=== PATIENT | female | born 1930 | race Two or more races ===

== ENCOUNTER 2017-01-11 16:23 | Inpatient (IN) | payer MEDICARE ==
[~2017-01-11] VITALS: Ht 160 cm; Wt 49.9 kg
[2017-01-11] MEDS ORDERED: ACET-2605 PO (21:47)
[2017-01-11] MEDS ORDERED: SENN-167 PO (21:47)
[2017-01-11] MEDS ORDERED: CALC500T51 PO (21:47)
[2017-01-11] MEDS ORDERED: PRED10TA23 PO (21:47)
[2017-01-11] MEDS ORDERED: ASPI81TA31 PO (21:47)
[2017-01-11 23:00] VITALS: BP 126/67
[2017-01-12] MEDS ORDERED: Z GUARD REMEDY PASTE 57 GM TUBE TOP PRN
--- NOTE | 2017-01-12 06:05 | NUR ---
+2014 RECEIVED AN 86 YEARS OLD FROM [facility] AND [facility] WITH ADMITTING DIAGNOSIS OF DEBILITY. AAOX2-3 CONFUSED AT TIMES. HISTORY OF DEMENTIA. SKIN INTACT. LUNGS CLEAR. VSS PULSE TEMP 97.7 HR 75 RESP 19 BP 117/66 PULSE OX 93% RA SEEN BY DR MCDUFFIE AMBULATES TO THE BATHROOM 2X WITH ASSIST. VOIDING WELL. NO BM NOTED. DENIES ANY PAIN NOR ANY DISCOMFORT.RIGHT HEEL WITH PEELING DRY SKIN AND BILATERAL LOWER EXTREMITIES HAS SOME REDNESS NOTED. HAS A BILATERAL SCD'S ON.SLEPT WELL.
[2017-01-12] MEDS: PANTOPRAZOLE SODIUM 40 MG TABLET.DR PO SCH (06:22)
--- NOTE | 2017-01-12 06:22 | NUR ---
protonix 40 mg po given x1 this morning. this is a duplicate med ordered
[2017-01-12] MEDS ORDERED: PANTOPRAZOLE SODIUM 40 MG TABLET.DR PO ONE (06:32)
[2017-01-12 08:00] VITALS: BP 131/76
[2017-01-12] MEDS: SENNOSIDES 1 TABLET PO SCH (09:15)
[2017-01-12] MEDS ORDERED: ACETAMINOPHEN ES 500 MG TABLET PO PRN (09:15)
[2017-01-12] MEDS: ASPIRIN 81 MG TAB.CHEW PO SCH (09:27)
[2017-01-12] MEDS: CALCIUM CARBONATE 500 MG TABLET PO SCH (09:29)
--- NOTE | 2017-01-12 19:20 | NUR ---
PT IS LAYING IN BED COMFORTABLY. NO S/S OF RESPIRATORY DISTRESS NOTED. NO PAIN NOTED. ALL SAFETY NEEDS ARE MET.
[2017-01-12 20:00] VITALS: BP 108/64
[2017-01-13] MEDS: PANTOPRAZOLE SODIUM 40 MG TABLET.DR PO SCH (06:36)
[2017-01-13 08:02] VITALS: BP 134/70
[2017-01-13] MEDS: ASPIRIN 81 MG TAB.CHEW PO SCH (08:45)
[2017-01-13] MEDS: SENNOSIDES 1 TABLET PO SCH (08:45)
[2017-01-13] MEDS: CALCIUM CARBONATE 500 MG TABLET PO SCH (08:46)
--- NOTE | 2017-01-13 18:13 | NUR ---
patient had an uneventful shift. confused at times and redirected to call out when she needs to get out of the bed. patient bed alarm engaged throughout shift. morning medications taken no prns given.
[2017-01-13 20:56] VITALS: BP 112/58
[2017-01-14] MEDS: PANTOPRAZOLE SODIUM 40 MG TABLET.DR PO SCH (06:48)
[2017-01-14 08:32] VITALS: BP 139/78
[2017-01-14] MEDS: ASPIRIN 81 MG TAB.CHEW PO SCH (09:57)
[2017-01-14] MEDS: CALCIUM CARBONATE 500 MG TABLET PO SCH (09:57)
[2017-01-14] MEDS: SENNOSIDES 1 TABLET PO SCH (09:57)
--- NOTE | 2017-01-14 13:20 | NUR ---
PT. IS OOB ALL SHIFT WORKING WITH P.T./O.T. WITH [facility] TOLERANCE. SITTING IN [facility] AND MOVING AROUND IN ROOM. FREQ. CHECKS FOR SAFTEY DUE TO FORGETFULNESS.PT. SPOKE WITH DR. 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 KNEES FOR INCISIONS. NONE NOTED. PER MD - PT. REFUSES CHEMICAL AND PHYSICAL DVT PROPHYLAXIS.
--- NOTE | 2017-01-14 18:49 | NUR ---
PT APPEARS TO HAVE INCREASED CONFUSION AFTER 4 PM AND WORRIED ABOUT SAFTEY REUESTING TO "LOCK THE DOOR". . PT. REASSURED AND REORIENTED. PT. ASSISTED TO BED AND NOW WATCHING TV. CALL LIGHT W/IN REACH. BED IN LOWEST POSITION. BED ALARM ON.
[2017-01-14 21:41] VITALS: BP 117/65
[2017-01-15] MEDS: PANTOPRAZOLE SODIUM 40 MG TABLET.DR PO SCH (06:30)
[2017-01-15 07:48] LABS: BASOPHILS % (AUTO) 0.4 % (0.0-2.0); EOSINOPHILS # (AUTO) 0.3 K/uL (0.0-0.7); HEMATOCRIT 36.8 % (37-47); HEMOGLOBIN 12.3 G/DL (12.0-16.0); LYMPHOCYTES # (AUTO) 1.2 K/UL (0.8-4.8); LYMPHOCYTES % (AUTO) 19.6 % (20.5-51.5); MEAN CORPUSCULAR HGB CONC 34 g/dL (32.0-37.0); MEAN CORPUSCULAR VOLUME 92.5 FL (81.0-99.0); MONOCYTES # (AUTO) 0.5 K/UL (0.1-1.30); PLATELET COUNT (AUTO) 270 K/UL (150-450); RED BLOOD CELL COUNT(AUTO) 3.98 MIL/UL (4.2-5.4)
[2017-01-15 08:00] VITALS: BP 128/69
[2017-01-15] MEDS: SENNOSIDES 1 TABLET PO SCH (08:15)
[2017-01-15] MEDS: ASPIRIN 81 MG TAB.CHEW PO SCH (08:15)
[2017-01-15] MEDS: CALCIUM CARBONATE 500 MG TABLET PO SCH (08:15)
[2017-01-15 08:18] LABS: CARBON DIOXIDE 29 mmol/L (21-32); CHLORIDE 108 mmol/L (98-107); CREATININE 0.7 mg/dL (0.6-1.3); GLUCOSE 84 mg/dL (74-106); MAGNESIUM 2.1 mg/dL (1.8-2.4); PHOSPHOROUS 3.4 mg/dL (2.5-4.9); UREA NITROGEN, BLOOD 18 mg/dL (7-18)
--- NOTE | 2017-01-15 18:05 | NUR ---
Patient had an uneventful day. Took medications with no problems. Patient has moments of forgetfulness.
[2017-01-15 20:00] VITALS: BP 105/56
[2017-01-16] MEDS: PANTOPRAZOLE SODIUM 40 MG TABLET.DR PO SCH (06:02)
[2017-01-16] MEDS: ASPIRIN 81 MG TAB.CHEW PO SCH (08:23)
[2017-01-16] MEDS: CALCIUM CARBONATE 500 MG TABLET PO SCH (08:23)
[2017-01-16] MEDS: SENNOSIDES 1 TABLET PO SCH (08:23)
[2017-01-16 11:06] VITALS: BP 127/75
--- NOTE | 2017-01-16 15:29 | NUR ---
[employer] SW met with patient at [facility] to assess pt needs and provide support. The patient is an 86 year old female who was admitted for general debility, functional decline and ambulation impairment. The patient stated that she is afraid of falling. She was calm and cooperative during the interview. The patient's mood was somewhat elevated. The patient stated that her sleep and appetite have been good . The patient stated that she lives in an assisted living facility but could not recall the name. The patient acknowledged her condition and the need for intervention. Social history: The patient stated that she was born in [facility] and moved to [place] in 1958. The patient stated that she was raised by her parents. The patient stated that she completed high school. She stated that she worked for [employer] and was laid off last year. The patient stated that she is a . The patient stated that she has 2 daughters and 1 son but that she does not know where her children live and does not talk to them very often. The patient denied any history of abuse or domestic violence. The patient denied any history of drug or alcohol abuse. The patient stated that she will return to her assisted living upon discharge. SW engaged in active listening and provided supportive counseling during the interview to address patient's depressive symptoms related to her decline in functioning. SW will continue to address issues of loss related to recent hospitalization. SW will encourage compliance with rehab goals. SW will be available as needed.
--- NOTE | 2017-01-16 19:30 | NUR ---
RECEIVED PATIENT AWAKE, ALERT, AND ORIENTED ONLY TO NAME AND SOMETIMES SITUATION. REORIENTED TO TIME, PLACE, AND DATE. NO C/O DISCOMFORT AT THIS TIME. APPEARS COMFORTABLE. CALL LIGHT WITHIN REACH AND BED ALARM ON AAT.
[2017-01-16 20:03] VITALS: BP 108/63
--- NOTE | 2017-01-16 21:35 | NUR ---
REPORT GIVEN TO LEX LUNSFORD. CARE HANDED OFF OF THIS PATIENT AT THIS TIME
[2017-01-17] MEDS: PANTOPRAZOLE SODIUM 40 MG TABLET.DR PO SCH (07:24)
[2017-01-17 08:00] VITALS: BP 138/72
[2017-01-17] MEDS: SENNOSIDES 1 TABLET PO SCH (08:45)
[2017-01-17] MEDS: CALCIUM CARBONATE 500 MG TABLET PO SCH (08:45)
[2017-01-17] MEDS: ASPIRIN 81 MG TAB.CHEW PO SCH (08:45)
--- NOTE | 2017-01-17 14:41 | NUR ---
REHAB TEAM CONFERENCE 01/17/17
--- NOTE | 2017-01-17 18:46 | NUR ---
Patient had a good day today. Worked with PT/OT. Patient stated she enjoyed the wheelchair because she can move around better.
[2017-01-17 20:06] VITALS: BP 98/60
[2017-01-18] MEDS: PANTOPRAZOLE SODIUM 40 MG TABLET.DR PO SCH (06:50)
[2017-01-18] MEDS: SENNOSIDES 1 TABLET PO SCH (08:09)
[2017-01-18] MEDS: CALCIUM CARBONATE 500 MG TABLET PO SCH (08:09)
[2017-01-18] MEDS: ASPIRIN 81 MG TAB.CHEW PO SCH (08:09)
[2017-01-18 08:20] VITALS: BP 118/68
--- NOTE | 2017-01-18 18:45 | NUR ---
pt seem to be confused and forgetful during the day. pt instructed to not leave the unit. pt forgot instructions and wheeled her self out of the unit. pt had no signs of acute distress. bed alarm on to prevent falls. pt taught to use the call light but forgot. pt ate all meals. pt assisted when needed. no new orders. will endorse developments to box toe stitcher nurse.
[2017-01-18 20:25] VITALS: BP 88/40
[2017-01-19] MEDS: PANTOPRAZOLE SODIUM 40 MG TABLET.DR PO SCH (06:07)
--- NOTE | 2017-01-19 06:32 | NUR ---
Pt had an uneventful night. AAO x3, forgetful. Able to make needs known. Afebrile. V/S stable. Pt denies any pain/discomfort. Will endorse to am shift nurse.
[2017-01-19 08:00] VITALS: BP 109/66
[2017-01-19] MEDS: SENNOSIDES 1 TABLET PO SCH (08:10)
[2017-01-19] MEDS: ASPIRIN 81 MG TAB.CHEW PO SCH (08:10)
[2017-01-19] MEDS: CALCIUM CARBONATE 500 MG TABLET PO SCH (08:10)
--- NOTE | 2017-01-19 09:42 | NUR ---
pt continues to be confused. pt instructed not to get up on her own. bed alarm on. pt monitored for fall precautions.
--- NOTE | 2017-01-19 17:53 | NUR ---
pt continues to be confused during shift. pt started to use the call light for help to prevent falls. pt took meds as prescribed. no new injuries noted. no loc changes. vitals stable. pt able to void and bm during the day. pt seen by and states that pt is confused. no new orders.
[2017-01-19 20:23] VITALS: BP 108/60
[2017-01-20] MEDS: PANTOPRAZOLE SODIUM 40 MG TABLET.DR PO SCH (07:05)
[2017-01-20 08:04] VITALS: BP 135/72
[2017-01-20] MEDS: CALCIUM CARBONATE 500 MG TABLET PO SCH (09:00)
[2017-01-20] MEDS: ASPIRIN 81 MG TAB.CHEW PO SCH (10:03)
[2017-01-20] MEDS: SENNOSIDES 1 TABLET PO SCH (10:03)
--- NOTE | 2017-01-20 20:00 | NUR ---
PATIENT IN ROOM WITH NO DISTRESS NOTED. ABLE TO AMBULATE TO RESTROOM WITH ASSIST. PROVIDE COMFORT AND SAFETY MEASURES
[2017-01-20 20:05] VITALS: BP 106/65
--- NOTE | 2017-01-20 22:10 | NUR ---
PATIENT IN ROOM WITH BED ALARM ON A/OX2 WITH NO DISTRESS NOTED. PATIENT CALM AND COOPERATIVE. PROVIDE COMFORT AND SAFETY MEASURES
--- NOTE | 2017-01-20 23:45 | NUR ---
RECEIVED PATIENT SLEEPING COMFORTABLY IN BED. NO ACUTE DISTRESS NOTED. SAFETY INITIATED. CALL LIGHT WITHIN REACH. WILL CONTINUE TO MONITOR. FALL PRECAUTION INITIATED.
[2017-01-21] MEDS: PANTOPRAZOLE SODIUM 40 MG TABLET.DR PO SCH (06:14)
--- NOTE | 2017-01-21 07:02 | NUR ---
NO CHANGES T/O SHIFT. NO ACUTE DISTRESS NOTED. ALL NEEDS MET. COMFORT AND SAFETY MEASURES MAINTAINED T/O SHIFT.
--- NOTE | 2017-01-21 08:00 | NUR ---
Received patient awake, up on bed, alert, verbally responsive, not in any form of acute distress. She denies any pain or discomfort. Assisted to her needs. Call light placed within reach.
[2017-01-21 08:48] VITALS: BP 140/79
[2017-01-21] MEDS: SENNOSIDES 1 TABLET PO SCH (09:19)
[2017-01-21] MEDS: CALCIUM CARBONATE 500 MG TABLET PO SCH (09:19)
[2017-01-21] MEDS: ASPIRIN 81 MG TAB.CHEW PO SCH (09:20)
[2017-01-21 20:00] VITALS: BP 105/59
[2017-01-22] MEDS: PANTOPRAZOLE SODIUM 40 MG TABLET.DR PO SCH (06:20)
[2017-01-22 07:20] VITALS: BP 127/72
[2017-01-22] MEDS: SENNOSIDES 1 TABLET PO SCH (08:21)
[2017-01-22] MEDS: ASPIRIN 81 MG TAB.CHEW PO SCH (08:21)
[2017-01-22] MEDS: CALCIUM CARBONATE 500 MG TABLET PO SCH (08:22)
[2017-01-22 20:00] VITALS: BP 104/55
[2017-01-22 20:07] VITALS: BP 104/55
--- NOTE | 2017-01-23 06:18 | NUR ---
Uneventful night, states slept well.
[2017-01-23] MEDS: PANTOPRAZOLE SODIUM 40 MG TABLET.DR PO SCH (06:52)
[2017-01-23 07:30] VITALS: BP 125/70
[2017-01-23] MEDS: SENNOSIDES 1 TABLET PO SCH (09:58)
[2017-01-23] MEDS: ASPIRIN 81 MG TAB.CHEW PO SCH (09:58)
[2017-01-23] MEDS: CALCIUM CARBONATE 500 MG TABLET PO SCH (09:58)
[2017-01-23 20:02] VITALS: BP 106/63
[2017-01-24] MEDS: PANTOPRAZOLE SODIUM 40 MG TABLET.DR PO SCH (07:16)
[2017-01-24 07:25] VITALS: BP 132/69
--- NOTE | 2017-01-24 08:00 | NUR ---
Handoff rounds last hour with visit to patient's bedside.
[2017-01-24 09:04] LABS: BASOPHILS % (AUTO) 0.8 % (0.0-2.0); EOSINOPHILS # (AUTO) 0.3 K/uL (0.0-0.7); HEMATOCRIT 37.4 % (37-47); HEMOGLOBIN 12.4 G/DL (12.0-16.0); LYMPHOCYTES # (AUTO) 1.1 K/UL (0.8-4.8); MEAN CORPUSCULAR HEMOGLOBIN 30.9 UUG (27.0-31.0); MEAN CORPUSCULAR HGB CONC 33 g/dL (32.0-37.0); MEAN CORPUSCULAR VOLUME 93.1 FL (81.0-99.0); MONOCYTES # (AUTO) 0.4 K/UL (0.1-1.30); MONOCYTES % (AUTO) 8.5 % (0.0-11.0); NEUTROPHILS # (AUTO) 2.9 K/UL (1.8-8.9); NEUTROPHILS % (AUTO) 61.7 % (38.5-71.5); PLATELET COUNT (AUTO) 255 K/UL (150-450); RED BLOOD CELL COUNT(AUTO) 4.02 MIL/UL (4.2-5.4); WHITE BLOOD COUNT (AUTO) 4.7 K/UL (4.0-11.2)
[2017-01-24 10:11] LABS: ALANINE AMINOTRANSFERASE 23 U/L (14-59); ALKALINE PHOSPHATASE 93 U/L (50-136); ASPARTATE AMINOTRANSFERASE 18 U/L (15-37); BILIRUBIN,TOTAL 0.4 mg/dL (0.2-1.0); CARBON DIOXIDE 28 mmol/L (21-32); CHLORIDE 107 mmol/L (98-107); CHOLESTEROL 183 mg/dL (<200); CREATININE 0.7 mg/dL (0.6-1.3); GLUCOSE 81 mg/dL (74-106); HDL CHOLESTEROL 65 mg/dL (40-60); MAGNESIUM 2.1 mg/dL (1.8-2.4); PHOSPHOROUS 3.2 mg/dL (2.5-4.9); POTASSIUM 3.9 mmol/L (3.5-5.1); TOTAL PROTEIN, SERUM 6.8 g/dL (6.4-8.2); TRIGLYCERIDES 65 MG/DL (30-150); UREA NITROGEN, BLOOD 20 mg/dL (7-18)
[2017-01-24] MEDS: CALCIUM CARBONATE 500 MG TABLET PO SCH (10:28)
[2017-01-24] MEDS: ASPIRIN 81 MG TAB.CHEW PO SCH (10:28)
[2017-01-24] MEDS: SENNOSIDES 1 TABLET PO SCH (10:28)
--- NOTE | 2017-01-24 10:30 | NUR ---
Debra to pass am medicine. Patient expresses some sadness and feeling like she is done with life. Feels like she wants to move without the weakness.
[2017-01-24 10:36] LABS: THYROID STIMULATING HORMONE 3.365 mIU/mL (0.358-3.740)
--- NOTE | 2017-01-24 11:00 | NUR ---
Rounds to patient. Working with PHOTOGRAPHY MANAGER at this time to complete bath.
--- NOTE | 2017-01-24 13:00 | NUR ---
Repositioned patient from wheelchair to bed. Wound care photos at this time.
--- NOTE | 2017-01-24 14:30 | NUR ---
Patient sleeping at this time.
--- NOTE | 2017-01-24 14:50 | NUR ---
REHAB TEAM CONFERENCE 01/24/17
--- NOTE | 2017-01-24 18:50 | NUR ---
Handoff report for night nurse.
--- NOTE | 2017-01-24 19:39 | NUR ---
Resting quietly in bed no distress or c/o
[2017-01-24 20:30] VITALS: BP 130/69
--- NOTE | 2017-01-25 05:03 | NUR ---
Slept most of the night,confused at times.Able to move about in bed on her own
[2017-01-25] MEDS: PANTOPRAZOLE SODIUM 40 MG TABLET.DR PO SCH (06:52)
--- NOTE | 2017-01-25 07:10 | NUR ---
Received pt in bed, a/o x 3, forgetful. Pt denies any pain or discomfort. Bed kept low/locked position, Call light and personal belongings within reach. Plan of care discussed
[2017-01-25 08:00] VITALS: BP 126/66
[2017-01-25] MEDS: CALCIUM CARBONATE 500 MG TABLET PO SCH (08:47)
[2017-01-25] MEDS: SENNOSIDES 1 TABLET PO SCH (08:47)
[2017-01-25] MEDS: ASPIRIN 81 MG TAB.CHEW PO SCH (08:47)
--- NOTE | 2017-01-25 16:15 | NUR ---
Received message from manager service desk to postpone discharge for tomorrow.
--- NOTE | 2017-01-25 18:42 | NUR ---
Received notice from case sealer that pt will be discharge today, waiting for pt to be picked up by boarding care.
[2017-01-25 20:09] VITALS: BP 130/72
--- NOTE | 2017-01-25 20:34 | NUR ---
Awake and alert confused at times, is upset because she didn't get to go home today
--- NOTE | 2017-01-26 06:00 | NUR ---
sLEPT MOST OF THE NIGHT,moves about in bed on her own
[2017-01-26] MEDS: PANTOPRAZOLE SODIUM 40 MG TABLET.DR PO SCH (06:23)
[2017-01-26 07:38] VITALS: BP 132/73
[2017-01-26] MEDS: ASPIRIN 81 MG TAB.CHEW PO SCH (09:10)
[2017-01-26] MEDS: CALCIUM CARBONATE 500 MG TABLET PO SCH (09:10)
[2017-01-26] MEDS: SENNOSIDES 1 TABLET PO SCH (09:10)
--- NOTE | 2017-01-26 10:30 | NUR ---
Patient discharge order received from MD. All paperwork and prescriptions verified with patient, signatures received. Verified with attending RN. All belongings verified with patient. VS WNL, no signs of acute distress noted, patient verbalizes her readiness to leave back to [facility]. Discharge verified with health administrator, Salvador. Patient transporting by private driver utility worker, Reyes, from [facility], leaving unit by wheelchair.
--- NOTE | 2017-01-26 10:30 | NUR ---
0730 Received patient on bed alert and ox3. Resp. even and unlabored, no s/s acute distress. Bed lock and in low position with bed rails up x2. Denies s/s pain, will monitor and medicate prn. 0800 Assisted to the restroom, morning care rendered and dressed. 0830 Breakfast served , ate well. Patient will discharged today to assisted living via facility transportation.
== END 2017-01-26 10:20 | disposition home health service (06) | DRG 948 ==
LOC: EDBD 21:27
PROVIDERS: ADMIT Physical Medicine & Rehabilitation Pain Medicine; ATTEND Physical Medicine & Rehabilitation Pain Medicine
DX: R53.81 Other malaise (principal); F03.90 Unspecified dementia, unspecified severity, without behavioral disturbance, psychotic disturbance, mood disturbance, and anxiety; D64.9 Anemia, unspecified; I10 Essential (primary) hypertension; M79.605 Pain in left leg; M79.604 Pain in right leg; Z96.653 Presence of artificial knee joint, bilateral; M19.90 Unspecified osteoarthritis, unspecified site; G31.84 Mild cognitive impairment of uncertain or unknown etiology; E78.5 Hyperlipidemia, unspecified; M81.0 Age-related osteoporosis without current pathological fracture; R53.1 Weakness; R26.9 Unspecified abnormalities of gait and mobility
CPT/HCPCS: 36415; 83735; 84100; 84443; 85025; 92523; 97110; 97112; 97116; 97165; 97530; 97535